=== PATIENT | male | born 1980 | race American Indian/Alaskan Native ===

== ENCOUNTER 2017-06-26 13:32 | Inpatient (IN) | payer OTHER ==
--- NOTE | 2017-06-26 13:45 | Emergency Department Report ---
Stated Complaint: STOMACH PAIN Time Seen by Provider: 06/26/17 13:43 - HPI History of Present Illness: patient is a 36 y/o male with h/o crohns who presents due to right lower abdominal pain x 4 days. Patient denies any nausea or vomiting. Patient admits of fever. - ROS Review of Systems: abdominal pain, fever - Exam Physical Exam: right lower abdominal tenderness. MSE screening note: Focused history and physical exam performed. Due to findings the following was ordered:abdominal pain protocol ED Disposition for MSE Condition: Stable
[2017-06-26 14:11] LABS: Basophils % (Auto) 0.6 % (0.0-1.8); Eosinophils % (Auto) 1.6 % (0.0-4.3); Hematocrit 34.7 % (35.5-45.6); Hemoglobin 11.5 gm/dl (11.8-15.2); Mean Corpuscular HGB Conc 33 % (32-34); Mean Corpuscular Volume 72 fl (84-94); Platelet Count 420 K/mm3 (140-440); Red Blood Count 4.82 M/mm3 (3.65-5.03); Red Cell Distribution Width 15.9 % (13.2-15.2); White Blood Count 14.4 K/mm3 (4.5-11.0)
[2017-06-26 14:13] LABS: Mean Corpuscular Hemoglobin 24 pg (28-32)
[2017-06-26 14:54] LABS: Bacteria,Urine 1+ /HPF (Negative); Bilirubin,Urine NEG (Negative); Blood,Urine MOD (Negative); Ketones,Urine NEG (Negative); Leukocyte Esterase,Urine NEG (Negative); Mucus,Urine 3+ /HPF; Nitrite,Urine NEG (Negative); Protein,Urine <15 mg/dL mg/dL (Negative); Urobilinogen,Urine < 2.0 mg/dL (<2.0)
[2017-06-26 14:57] LABS: Albumin 3.4 g/dL (3.9-5); Albumin/Globulin Ratio 0.9 %; Alkaline Phosphatase 59 units/L (35-129); Anion Gap 16 mmol/L; BUN/Creatinine Ratio 9; Blood Urea Nitrogen 7 mg/dL (9-20); Calcium 9.2 mg/dL (8.4-10.2); Carbon Dioxide 28 mmol/L (22-30); Chloride 102.4 mmol/L (98-107); Glucose 97 mg/dL (75-100); Lipase 23 units/L (13-60); Potassium 5.2 mmol/L (3.6-5.0); Sodium 141 mmol/L (137-145); Total Protein 7.3 g/dL (6.3-8.2)
[2017-06-26 14:59] LABS: Alanine Aminotransferase 10 units/L (7-56)
--- NOTE | 2017-06-26 16:58 | Emergency Department Report ---
<AVNI SAWYER - Last Filed: 06/26/17 19:37> ED Abdominal Pain HPI - General Chief Complaint: Abdominal Pain Stated Complaint: STOMACH PAIN Time Seen by Provider: 06/26/17 16:02 Source: patient, RN notes reviewed Mode of arrival: Ambulatory Limitations: No Limitations - History of Present Illness Initial Comments: This is a 36-year-old male, patient is previously known to this provider. Patient has a past medical history of possible Crohn's disease, with a complicated surgical history who recently presented to an outside hospital with chronic abdominal pain since an initial surgery in 2007, that had gotten worse in the previous 5 days. There was a recent CT scan performed at an outpatient hospital, [facility], with a questionable area of pneumoperitoneum suggestive of perforation. This is surrounding a significant area of colitis and ileitis. Surgery signed off at that time, the CT scan was reviewed with the radiologist and compared to a scan performed in April, and there was noted to be inflammation at the ileocolic anastomosis. This information was noted to be slightly worsened since April. CT scan was reexamined with radiology and Gen. surgery," it is not appear to be any pneumoperitoneum or perforation noted." Surgery signed off. Patient today presents to the ER with complaints of right upper quadrant, right flank and right lower quadrant pain. The pain is sharp, and increases with palpation, and decreases with rest. He was also given hydromorphone, and this improved his pain. He denies testicular pain, irritative/obstructive urinary symptoms. Denies headache, neck pain, chest pain, leg pain. Patient also reported that "steroids make my pain better." MD Complaint: abdominal pain -: Gradual Location: RUQ, RLQ Severity: moderate Quality: cramping, aching Consistency: constant Improves With: medication, rest Worsens With: movement - Related Data Home Medications Medication Instructions Recorded Confirmed Last Taken No Known Home Medications [No 06/26/17 06/26/17 Unknown Reported Home Medications] Allergies Allergy/AdvReac Type Severity Reaction Status Date / Time No Known Allergies Allergy Unverified 04/06/14 18:32 ED Review of Systems ROS: Stated complaint: STOMACH PAIN Other details as noted in HPI Constitutional: denies: fever Eyes: denies: vision change ENT: denies: epistaxis Respiratory: denies: cough Cardiovascular: denies: chest pain Gastrointestinal: abdominal pain Genitourinary: denies: dysuria Musculoskeletal: denies: back pain Skin: denies: lesions Psychiatric: denies: as per HPI ED Past Medical Hx - Past Medical History Additional medical history: crohns - Surgical History Additional Surgical History: abdominal surgery related to chrones,kidney stents right - Social History Smoking Status: Current Every Day Smoker Substance Use Type: None - Medications Home Medications: Home Medications Medication Instructions Recorded Confirmed Last Taken Type No Known Home Medications [No 06/26/17 06/26/17 Unknown History Reported Home Medications] ED Physical Exam - General Limitations: No Limitations General appearance: alert, in no apparent distress - Head Head exam: Present: atraumatic, normocephalic - Eye Eye exam: Present: normal appearance, EOMI - ENT ENT exam: Present: normal exam, mucous membranes moist - Neck Neck exam: Present: normal inspection, full ROM. Absent: tenderness, meningismus - Respiratory Respiratory exam: Present: normal lung sounds bilaterally. Absent: respiratory distress, wheezes, rales, rhonchi, stridor, chest wall tenderness, accessory muscle use, decreased breath sounds, prolonged expiratory - Cardiovascular Cardiovascular Exam: Present: regular rate, normal rhythm, normal heart sounds. Absent: systolic murmur, diastolic murmur, rubs, gallop - GI/Abdominal GI/Abdominal exam: Present: soft, tenderness, normal bowel sounds, other (right upper quadrant, right flank, right lower quadrant tenderness. No rebound, guarding or peritoneal signs.). Absent: distended, guarding, rebound, rigid, pulsatile mass - Rectal Rectal exam: Present: deferred - Extremities Exam Extremities exam: Present: normal inspection, full ROM, normal capillary refill. Absent: pedal edema, joint swelling, calf tenderness - Back Exam Back exam: Present: normal inspection, full ROM. Absent: tenderness, CVA tenderness (R), CVA tenderness (L), muscle spasm, paraspinal tenderness, vertebral tenderness - Neurological Exam Neurological exam: Present: alert, oriented X3, other (Extraocular movements intact. Tongue midline. No facial droop. Facial sensation intact to light touch in the V1, V2, V3 distribution bilaterally. 5 and 5 strength in 4 extremities.. Sensation is intact to light touch in 4 extremities.). Absent: motor sensory deficit - Psychiatric Psychiatric exam: Present: normal affect, normal mood - Skin Skin exam: Present: warm, dry, intact, normal color. Absent: rash ED Course Vital Signs 06/26/17 06/26/17 06/26/17 13:41 14:27 16:46 Temperature 98.4 F Pulse Rate 95 H 81 Respiratory 18 16 15 Rate Blood Pressure 104/77 Blood Pressure [Left] O2 Sat by Pulse 100 Oximetry 06/26/17 06/26/17 06/26/17 17:00 18:00 18:21 Temperature Pulse Rate 84 86 Respiratory 12 16 16 Rate Blood Pressure 133/84 138/88 Blood Pressure [Left] O2 Sat by Pulse 100 100 Oximetry 06/26/17 19:10 Temperature 98.4 F Pulse Rate 82 Respiratory 16 Rate Blood Pressure Blood Pressure 123/79 [Left] O2 Sat by Pulse 99 Oximetry - Reevaluation(s) Reevaluation #1: 06/26/17 19:30 Differential diagnoses: Colitis, diverticulitis, bowel obstruction, perforation Assessment and plan: 36 year-old male, has multiple episodes of recurrent acute on chronic abdominal pain, CT scan interpretation from the [facility] is reviewed from 06/15/2017 demonstrates the following findings: Surgical anastomotic line in the right colon near the hepatic flexure. Significant bowel wall thickening in the right colon and cecum perhaps including the distal ileum, suggestive of colitis/enteritis. Questionable foci of extraluminal air although this is indeterminate." No large fluid collection is noted patient will be given a CT scan with IV and oral contrast. He was given pain medication, nausea medication, IV fluids, and is currently sleeping comfortably. Care will be transferred to the overnight physician, Dr. Gallagher, to follow-up on CT scan of the abdomen and pelvis. Disposition as per CT scan. Given leukocytosis and tenderness, low thresholds with the patient. of note, patient reports multiple negative colonoscopies for chrones / ulcerative colitis, the last of which was 4-5 months ago at [place], as per patient have requested colonscopy reports, thus far, they have not returned 06/26/17 19:37 ED Medical Decision Making - Lab Data Result diagrams: 06/26/17 13:48 06/26/17 13:48 Critical care attestation.: If time is entered above; I have spent that time in minutes in the direct care of this critically ill patient, excluding procedure time. ED Disposition Clinical Impression: Intractable abdominal pain, Inflammation of colonic mucosa Disposition: DC-09 OP ADMIT IP TO THIS HOSP Condition: Stable <JUICE GALLAGHER - Last Filed: 06/26/17 21:36> ED Course - Reevaluation(s) Reevaluation #2: 06/26/17 21:35 additional Dilaudid dose ordered - Consultations Consultation #1: 06/26/17 21:32 Dr Curtis (GI) consulted and recommends: No antibiotics IVf Pain management will consult ED Medical Decision Making - Lab Data Result diagrams: 06/26/17 13:48 06/26/17 13:48 - Medical Decision Making Plan to admit patient to the hospital for further workup and evaluation by GI. He has a complicated history recent workup at [facility]. Medical records many further review to determine proper inpatient treatment ED Disposition Is pt being admited?: Yes Time of Disposition: 21:33 (Dr Shaw/hosp)
[2017-06-26] MEDS ORDERED: ZOFRAN IV ONE (17:06)
[2017-06-26] MEDS ORDERED: NACL 0.9% 1000 ML 1,000 ML IV ONE (17:06)
[2017-06-26] MEDS ORDERED: DILAUDID IV ONE ×2 (17:06→21:14)
[2017-06-26] MEDS ORDERED: NACL ONE (19:54)
--- NOTE | 2017-06-26 20:53 | Cat Scan Report ---
FINAL REPORT EXAM: CT ABDOMEN PELVIS W CON HISTORY: right abd pain TECHNIQUE: Spiral CT scanning of the abdomen and pelvis after the uneventful administration of IV contrast. Multiplanar reformations. 100 mL Omnipaque IV. PRIORS: None. FINDINGS: Abdomen: Visualized lung bases show mild atelectatic change or scarring bilaterally. No radiopaque gallstones. Liver without significant abnormality. Spleen without significant abnormality. Pancreas without significant abnormality. Kidneys without significant abnormality. Adrenal glands without significant abnormality. Pelvis: There may be postsurgical changes and surgical clips or sutures in the ascending colon region. Marked, concentric and irregular bowel wall and fold thickening in the ascending colon, with near complete luminal effacement and diffuse pericolonic fat stranding. No apparent pneumatosis. Terminal ileum is poorly defined and may be partially assimilated into ascending colon phlegmon, with associated bowel wall and fold thickening. Appendix obscured and not confidently identified. Multiple enlarged lymph nodes in the right lower quadrant mesentery may be reactive, but nonspecific. Remainder of visualized bowel grossly unremarkable, without evidence of mechanical bowel obstruction. No significant free peritoneal fluid or discrete abscess. Abdominal aorta non-aneurysmal. IMPRESSION: 1. Findings compatible with nonspecific postinflammatory or phlegmonous change and colitis involving the ascending colon, probable cecum and possible terminal ilium, which may be secondary to infectious, inflammatory or ischemic etiology, including Crohn's disease. Neoplastic process not completely excluded. Clinical correlation and followup to resolution advised.
[2017-06-26] MEDS ORDERED: DILAUDID ONE (22:56)
--- NOTE | 2017-06-26 23:22 | History and Physical Report ---
History of Present Illness Date of examination: 06/26/17 History of present illness: 36-year-old male with a history of Crohn's disease came to the emergency room with complaints of abdominal pain. Patient is in the right lower quadrant which she describes as a sharp pain, constant, intensity 7/10, no radiation and he cannot identify exacerbating or relieving factor. Medical records were reviewed, The patient was admitted at [facility] for similar complaints and was discharged 10 days ago, he was treated with antibiotics, this CAT scan at that time showed thickening and inflammation in the right colon, cecum and distal ileum with questionable extraluminal air. Patient was discharged to home, he stated that his pain felt better but it got worse over the last 5 days Review Of Systems: Constitutional: no weight loss Ears, eyes, nose, mouth and throat: no nasal congestion, no nasal discharge, no sinus pressure, blurry vision, diplopia Neck: No neck pain or rigidity. Cardiovascular: no chest pain, orthopnea, palpitations Respiratory: No shortness of breath, cough Gastrointestinal: no hematochezia Genitourinary : no dysuria, frequency , hematuria Musculoskeletal: no muscle ache Integumentary: no rash, no pruritis Neurological: no parathesias, focal weakness Endocrine: no cold or heat intolerance, no polyuria or polydipsia Hematologic/Lymphatic: no easy bruising, no easy bleeding, no gland swelling Allergic/Immunologic: no urticaria, no angioedema. PAST MEDICAL HISTORY:Crohn's diseas PAST SURGICAL HISTORY: Right hemicolectomy, repair of colovesical fistula FAMILY HISTORY: Hypertension SOCIAL HISTORY: Denies alcohol, tobacco, drugs Medications and Allergies Allergies Allergy/AdvReac Type Severity Reaction Status Date / Time No Known Allergies Allergy Unverified 04/06/14 18:32 Home Medications Medication Instructions Recorded Confirmed Last Taken Type No Known Home Medications [No 06/26/17 06/26/17 Unknown History Reported Home Medications] Exam - Physical Exam Narrative exam: Gen. appearance: Patient lying in bed in no acute distress HEENT: Normocephalic/atraumatic, pupils equal round reactive to light, extra alkaline movement intact, no scleral icterus, no JVD or thyromegaly or nodule, neck is supple, mucous membrane moist, no erythema or exudate Heart: S1-S2, regular rate and rhythm Lungs: Clear to auscultation bilateral breathing comfortable Abdomen: Positive bowel sounds, tender on the right abdomen, nondistended, no organomegaly Extremities: No edema, cyanosis, clubbing Neuro:: Oriented 3 , cranial nerves II-12 intact, speech, motor intact Skin: No rash, nodules, warm dry - Constitutional Vitals: Temp Pulse Resp BP Pulse Ox 98.4 F 82 16 123/79 99 06/26/17 19:10 06/26/17 19:10 06/26/17 19:10 06/26/17 19:10 06/26/17 19:10 Results - Labs CBC & Chem 7: 06/28/17 05:51 06/28/17 05:51 Labs: Abnormal lab results 06/26/17 06/26/17 Range/Units 13:48 13:48 WBC 14.4 H (4.5-11.0) K/mm3 Hgb 11.5 L (11.8-15.2) gm/dl Hct 34.7 L (35.5-45.6) % MCV 72 L (84-94) fl MCH 24 L (28-32) pg RDW 15.9 H (13.2-15.2) % Lymph % (Auto) 11.8 L (13.4-35.0) % [place] # 0.9 H (0.0-0.8) K/mm3 Seg Neutrophils % 80.0 H (40.0-70.0) % Seg Neutrophils # 11.5 H (1.8-7.7) K/mm3 Potassium 5.2 H (3.6-5.0) mmol/L BUN 7 L (9-20) mg/dL Albumin 3.4 L (3.9-5) g/dL - Imaging and Cardiology CT scan - abdomen: report reviewed CT scan - pelvis: report reviewed Assessment and Plan Assessment Intractable abdominal pain Chrons disease Plan Admit to medicine start IV fluids, IV morphine hold antibiotics per GI GI is consulted to see the patient, dvt prophylaxis
[2017-06-27] MEDS ORDERED: MILK OF MAGNESIA PO PRN (03:45)
[2017-06-27] MEDS ORDERED: DULCOLAX PR PRN (03:45)
[2017-06-27] MEDS ORDERED: TYLENOL PO PRN (03:45)
[2017-06-27] MEDS ORDERED: ZOFRAN IV PRN (03:45)
[2017-06-27] MEDS: MORPHINE IV PRN ×5 (04:17→22:16)
[2017-06-27] MEDS: NACL 0.45% 1000 ML 1,000 ML IV SCH ×2 (04:21→14:04)
[2017-06-27] MEDS: LOVENOX SUB-Q SCH (09:25)
--- NOTE | 2017-06-27 11:16 | Gastroenterology Consultation ---
<JUNGKWASITRUE Olivera - Last Filed: 06/27/17 12:15> History of Present Illness - Reason for Consult Consult date: 06/27/17 intractable abd pain, colitis Requesting physician: JUICE EAGLE - History of Present Illness Patient is a 36 y/o male with PMH of kidney stents and possible Crohn's disease with right hemicolectomy in 2007 to repair colovesical fistula who presented to the ER with c/o RLQ abd pain. Patient reports having a kidney stent in 2007 with development of a fistula requiring right hemicolectomy. He states that he has had chronic RLQ abd pain since that time with BMs of liquid watery stool on average of 1 per day. He has undergone multiple colonoscopies with no confirmed diagnosed of Crohn's disease. Last colonoscopy 02/[address] Gill at [facility] showed and anastomotic stricture but otherwise normal. He reports failing treatment with Humira, Remicade, and Entyvio in the pastwhile living in [place] on an indigent program 2/2 side effects of muscle weakness. He states "they all made me look like I was having a stroke and I couldn't move my wrists or legs". He reports being off medications since 2011 with multiple hospital admissions since that time. He states that his pain is only tolerable while he is on steroids but as soon as he comes off of them his RLQ pain returns. Pain is described as chronic, constant, non-radiating, worsened by eating, and alleviated with pain medications or steroids. He states that he has not been able to comply with outpatient f/u as needed due to inability to pay and lack of insurance. No Fhx of IBD. Denies fever, recent wt loss, N/V, constipation, or rectal bleeding. Last BM overnight with liquid yellow/watery non-bloody stool. No recent travel or ill contacts. Past History Past Medical History: other (possible Crohn's disease) Past Surgical History: Other (kidney stents, right hemicolectomy for repair of colovesical fistula) Social history: Lives alone, smoking. denies: alcohol abuse Family history: hypertension Medications and Allergies Allergies Allergy/AdvReac Type Severity Reaction Status Date / Time No Known Allergies Allergy Unverified 04/06/14 18:32 Home Medications Medication Instructions Recorded Confirmed Last Taken Type No Known Home Medications [No 06/26/17 06/26/17 Unknown History Reported Home Medications] Active Meds: Active Medications Acetaminophen (Tylenol) 650 mg PO Q4H PRN PRN Reason: Pain MILD(1-3)/Fever >100.5/FLORIAN Bisacodyl (Dulcolax) 10 mg MD QDAY PRN PRN Reason: Constipation unrelieved by MOM Enoxaparin Sodium (Lovenox) 40 mg SUB-Q QDAY TATE Last Admin: 06/27/17 09:25 Dose: 40 mg Sodium Chloride (Nacl 0.45% 1000 Ml) 1,000 mls @ 100 mls/hr IV DIRECT TATE Last Admin: 06/27/17 04:21 Dose: 100 mls/hr Magnesium Hydroxide (Milk Of Magnesia) 30 ml PO Q4H PRN PRN Reason: Constipation Morphine Sulfate (Morphine) 2 mg IV Q4H PRN PRN Reason: Pain, Moderate (4-6) Last Admin: 06/27/17 09:25 Dose: 2 mg Ondansetron HCl (Zofran) 4 mg IV Q8H PRN PRN Reason: N/V unrelieved by Reglan Review of Systems - Review of Systems All systems: negative Gastrointestinal: abdominal pain (RLQ), diarrhea Exam - Constitutional Vital Signs: Temp Pulse Resp BP Pulse Ox 97.8 F 59 L 18 113/69 99 06/27/17 08:10 06/27/17 08:10 06/27/17 08:10 06/27/17 08:10 06/27/17 09:08 General appearance: no acute distress - EENT Eyes: PERRL, EOM intact ENT: hearing intact - Respiratory Respiratory: bilateral: CTA - Cardiovascular Rhythm: regular Heart Sounds: Present: S1 & S2 Extremities: No edema - Gastrointestinal General gastrointestinal: Present: soft, tender (RLQ), non-distended, normal bowel sounds - Integumentary Integumentary: Present: warm, dry - Neurologic Neurological: alert and oriented x3 - Labs CBC & Chem 7: 06/26/17 13:48 06/26/17 13:48 Assessment and Plan 1.intractable RLQ abd pain 2.colitis 3.possible Crohn's disease 4.diarrhea -afebrile -WBC-14.4 -abd CT showed nonspecific post inflammatory or phlegmonous change and colitis -pt with h/o right hemicolectomy for colovesical repair in 2007 with suspicion for possible Crohn's disease, however there has never been a confirmed diagnosis -last colonoscopy 02/17 showed an anastomotic stricture but otherwise normal -pt reports failing treatment with Humira, Remicade,and Entyvio in the past with only relief in pain since that time with steroids -will start pt on IV steroids, Cipro and flagyl -will order stool studies, CRP, and ASCA/ANCA -continue supportive care -pt may require chronic steroid use with possible surgical revision of anastomotic stricture in the future -He will also need a CT enterography as an outpatient to assess small bowel -further recommendations to follow <CARSON VASQUEZ - Last Filed: 06/27/17 18:49> History of Present Illness - History of Present Illness Pt had kidney stent placed in 2007. He was told he had a fistula in 2011, and required surgery then, at which time he states 4" of small bowel were removed, and a hole in his colon repaired. He is not aware of any colon resection. He states he was on Humira at the time, and it was stopped 2 wks prior to surgery, and restarted 1 wk post-op. He states he was hospitalized for several months, and had a protracted recovery. Currently, feels better after getting steroids. He was just in [facility], but left [facility] on 06/16/17 after what he states was being called stupid for thinking his problems all originiated from stent and possible perforation. He states he has had 3 colonoscopies thus far this year, and care has been compromised by lack of insurance. Medications and Allergies Active Meds: Active Medications Acetaminophen (Tylenol) 650 mg PO Q4H PRN PRN Reason: Pain MILD(1-3)/Fever >100.5/FLORIAN Bisacodyl (Dulcolax) 10 mg MD QDAY PRN PRN Reason: Constipation unrelieved by MOM Enoxaparin Sodium (Lovenox) 40 mg SUB-Q QDAY TATE Last Admin: 06/27/17 09:25 Dose: 40 mg Sodium Chloride (Nacl 0.45% 1000 Ml) 1,000 mls @ 100 mls/hr IV DIRECT TATE Last Admin: 06/27/17 14:04 Dose: 100 mls/hr Levofloxacin/Dextrose (Levaquin 500mg/100ml) 500 mg in 100 mls @ 100 mls/hr IV Q24HR TATE PRN Reason: Protocol Metronidazole (Flagyl 500 Mg/100 Ml) 500 mg in 100 mls @ 100 mls/hr IV Q8HR TATE Last Admin: 06/27/17 14:04 Dose: 100 mls/hr Magnesium Hydroxide (Milk Of Magnesia) 30 ml PO Q4H PRN PRN Reason: Constipation Methylprednisolone Sodium Succinate (Solu-Medrol) 40 mg IV Q24HR TATE Last Admin: 06/27/17 14:04 Dose: 40 mg Morphine Sulfate (Morphine) 2 mg IV Q4H PRN PRN Reason: Pain, Moderate (4-6) Last Admin: 06/27/17 18:17 Dose: 2 mg Ondansetron HCl (Zofran) 4 mg IV Q8H PRN PRN Reason: N/V unrelieved by Reglan Exam - Constitutional Vital Signs: Temp Pulse Resp BP Pulse Ox 98.4 F 63 20 123/82 98 06/27/17 15:36 06/27/17 15:36 06/27/17 15:36 06/27/17 15:36 06/27/17 15:36 - Labs CBC & Chem 7: 06/26/17 13:48 06/26/17 13:48 Assessment and Plan Inflammation in ascending colon on CT is different from normal colon with TI stricture in 02/2017. Check for infection, and tx for Crohn's flare. If does well, can go home on oral abx and steroids. Outpatient CTE, and then pt getting us old op note to assess. He may well need chronic low dose steroids, and then eval for trial of Stellara vs resection vs continue steroids, possibly budesonide.
[2017-06-27] MEDS: FLAGYL 500 MG/100 ML 500 MG/100 ML BAG IV SCH ×2 (14:04→22:16)
--- NOTE | 2017-06-27 21:38 | Progress Note ---
Assessment and Plan Assessment and plan: 36 yo AAM with h/o ureteral stents and postop development of colovesical fistula , that required right hemicolectomy, with chronic RLQ pain and presumed Crohn's disease, s/p failed treatment with immunosuppressives due to side effects, presented for worsening abdominal pain; of note, he feels better only while he is on corticosteroids 1. Abdominal pain/Crohn's disease flare S/p right hemicolectomy and chronic RLQ pain Failed treatment wit Humira, Remicade, Entyvio CT abd/pelvis showing inflammation/colitis ascending colon, stricture Stool WBC and culture obtained GI following and initiated corticosteroid therapy along with oral antibiotics, ciprofloxacin and Flagyl 2. Colonic stricture 3. S/p hemicolectomy due to colovesical fistula 4. DVT prophylaxis History Interval history: less abd pain, feeling better Hospitalist Physical - Constitutional Vitals: Temp Pulse Resp BP Pulse Ox 98.4 F 63 20 123/82 98 06/27/17 15:36 06/27/17 15:36 06/27/17 15:36 06/27/17 15:36 06/27/17 15:36 General appearance: Present: no acute distress, well-nourished - EENT Eyes: Present: PERRL, EOM intact. Absent: scleral icterus, conjunctival injection - Neck Neck: Present: supple, normal ROM. Absent: masses or JVD - Respiratory Respiratory effort: normal Respiratory: bilateral: CTA, negative: rhonchi, wheezing - Cardiovascular Rhythm: regular Heart Sounds: Present: S1 & S2. Absent: systolic murmur - Extremities Extremities: no ischemia - Abdominal General gastrointestinal: soft, tender, non-distended, normal bowel sounds Localized gastrointestinal: tender: RLQ (no guarding or rebound ) - Psychiatric Psychiatric: cooperative - Neurologic Neurologic: CNII-XII intact, no focal deficits Results - Labs CBC & Chem 7: 06/28/17 05:51 06/28/17 05:51 Labs: Laboratory Last Values WBC 14.4 K/mm3 (4.5-11.0) H 06/26/17 13:48 RBC 4.82 M/mm3 (3.65-5.03) 06/26/17 13:48 Hgb 11.5 gm/dl (11.8-15.2) L 06/26/17 13:48 Hct 34.7 % (35.5-45.6) L 06/26/17 13:48 MCV 72 fl (84-94) L 06/26/17 13:48 MCH 24 pg (28-32) L 06/26/17 13:48 MCHC 33 % (32-34) 06/26/17 13:48 RDW 15.9 % (13.2-15.2) H 06/26/17 13:48 Plt Count 420 K/mm3 (140-440) 06/26/17 13:48 Lymph % (Auto) 11.8 % (13.4-35.0) L 06/26/17 13:48 [place] % (Auto) 6.0 % (0.0-7.3) 06/26/17 13:48 Eos % (Auto) 1.6 % (0.0-4.3) 06/26/17 13:48 Baso % (Auto) 0.6 % (0.0-1.8) 06/26/17 13:48 Lymph # 1.7 K/mm3 (1.2-5.4) 06/26/17 13:48 [place] # 0.9 K/mm3 (0.0-0.8) H 06/26/17 13:48 Eos # 0.2 K/mm3 (0.0-0.4) 06/26/17 13:48 Baso # 0.1 K/mm3 (0.0-0.1) 06/26/17 13:48 Seg Neutrophils % 80.0 % (40.0-70.0) H 06/26/17 13:48 Seg Neutrophils # 11.5 K/mm3 (1.8-7.7) H 06/26/17 13:48 Sodium 141 mmol/L (137-145) 06/26/17 13:48 Potassium 5.2 mmol/L (3.6-5.0) H 06/26/17 13:48 Chloride 102.4 mmol/L (98-107) 06/26/17 13:48 Carbon Dioxide 28 mmol/L (22-30) 06/26/17 13:48 Anion Gap 16 mmol/L 06/26/17 13:48 BUN 7 mg/dL (9-20) L 06/26/17 13:48 Creatinine 0.8 mg/dL (0.8-1.5) 06/26/17 13:48 Estimated GFR > 60 ml/min 06/26/17 13:48 BUN/Creatinine Ratio 9 % 06/26/17 13:48 Glucose 97 mg/dL (75-100) 06/26/17 13:48 Lactic Acid 1.10 mmol/L (0.7-2.0) 06/26/17 17:45 Calcium 9.2 mg/dL (8.4-10.2) 06/26/17 13:48 Total Bilirubin 0.30 mg/dL (0.1-1.2) 06/26/17 13:48 AST 13 units/L (5-40) 06/26/17 13:48 ALT 10 units/L (7-56) 06/26/17 13:48 Alkaline Phosphatase 59 units/L (35-129) 06/26/17 13:48 Total Protein 7.3 g/dL (6.3-8.2) 06/26/17 13:48 Albumin 3.4 g/dL (3.9-5) L 06/26/17 13:48 Albumin/Globulin Ratio 0.9 % 06/26/17 13:48 Lipase 23 units/L (13-60) 06/26/17 13:48 Urine Color Yellow (Yellow) 06/26/17 14:04 Urine Turbidity Clear (Clear) 06/26/17 14:04 Urine pH 6.0 (5.0-7.0) 06/26/17 14:04 Ur Specific [place] 1.021 (1.003-1.030) 06/26/17 14:04 Urine Protein <15 mg/dl mg/dL (Negative) 06/26/17 14:04 Urine Glucose (UA) Neg mg/dL (Negative) 06/26/17 14:04 Urine Ketones Neg mg/dL (Negative) 06/26/17 14:04 Urine Blood Mod (Negative) 06/26/17 14:04 Urine Nitrite Neg (Negative) 06/26/17 14:04 Urine Bilirubin Neg (Negative) 06/26/17 14:04 Urine Urobilinogen < 2.0 mg/dL (<2.0) 06/26/17 14:04 Ur Leukocyte Esterase Neg (Negative) 06/26/17 14:04 Urine WBC (Auto) 1.0 /HPF (0.0-6.0) 06/26/17 14:04 Urine RBC (Auto) 4.0 /HPF (0.0-6.0) 06/26/17 14:04 U Epithel Cells (Auto) 1.0 /HPF (0-13.0) 06/26/17 14:04 Urine Bacteria (Auto) 1+ /HPF (Negative) 06/26/17 14:04 Urine Mucus 3+ /HPF 06/26/17 14:04 - Imaging and Cardiology US - abdomen: report reviewed
[2017-06-28] MEDS: MORPHINE IV PRN ×4 (02:59→19:43)
[2017-06-28] MEDS: NACL 0.45% 1000 ML 1,000 ML IV SCH ×2 (03:32→16:52)
[2017-06-28] MEDS: FLAGYL 500 MG/100 ML 500 MG/100 ML BAG IV SCH ×3 (05:50→22:22)
[2017-06-28 06:31] LABS: Basophils % (Auto) 0.6 % (0.0-1.8); Eosinophils % (Auto) 0.1 % (0.0-4.3); Hematocrit 33.1 % (35.5-45.6); Hemoglobin 10.9 gm/dl (11.8-15.2); Mean Corpuscular HGB Conc 33 % (32-34); Mean Corpuscular Hemoglobin 24 pg (28-32); Mean Corpuscular Volume 72 fl (84-94); Platelet Count 381 K/mm3 (140-440); Red Blood Count 4.62 M/mm3 (3.65-5.03); Red Cell Distribution Width 15.8 % (13.2-15.2); White Blood Count 14.3 K/mm3 (4.5-11.0)
[2017-06-28 06:53] LABS: Anion Gap 13 mmol/L; BUN/Creatinine Ratio 10; Blood Urea Nitrogen 7 mg/dL (9-20); Calcium 8.7 mg/dL (8.4-10.2); Carbon Dioxide 27 mmol/L (22-30); Chloride 102.4 mmol/L (98-107); Glucose 101 mg/dL (75-100); Potassium 4.3 mmol/L (3.6-5.0); Sodium 138 mmol/L (137-145)
[2017-06-28] MEDS ORDERED: LEVAQUIN 500MG/100ML 500 MG/100 ML BAG IV SCH (10:00)
[2017-06-28] MEDS: LOVENOX SUB-Q SCH (10:15)
--- NOTE | 2017-06-28 11:21 | Gastroenterology Progress Note ---
<JUNGKWASI Jarod - Last Filed: 06/28/17 11:27> Assessment and Plan 1.intractable RLQ abd pain 2.colitis 3.possible Crohn's disease 4.diarrhea -afebrile -WBC-14.3 -CRP-3.70 -ASCA/ANCA results pending -stool studies pending -abd CT showed nonspecific post inflammatory or phlegmonous change and colitis -pt with h/o right hemicolectomy for colovesical repair in 2007 with suspicion for possible Crohn's disease, however there has never been a confirmed diagnosis -last colonoscopy 02/17 showed an anastomotic stricture but otherwise normal -clinically pt states he is feeling better today with abd pain improving and he is tolerating clear liquid diet -will advance diet -continue current medications and supportive care -will follow Subjective Date of service: 06/28/17 Principal diagnosis: intractable abd pain, colitis Interval history: Patient resting in bed. No acute distress or events overnight. Reports his abd pain is improving and he is feeling better. Tolerating clear liquids. Objective - Constitutional Vitals: Temp Pulse Resp BP Pulse Ox 97.3 F L 57 L 20 128/75 100 06/28/17 08:36 06/28/17 08:36 06/28/17 08:36 06/28/17 08:36 06/28/17 08:36 General appearance: no acute distress - EENT Eyes: PERRL, EOM intact ENT: hearing intact - Respiratory Respiratory: bilateral: CTA - Cardiovascular Rhythm: other (bradycardia) Heart Sounds: Present: S1 & S2 - Extremities Extremities: No edema - Gastrointestinal General gastrointestinal: Present: soft, tender (RLQ), non-distended, normal bowel sounds - Integumentary Integumentary: Present: warm, dry - Neurologic Neurological: alert and oriented x3 - Labs CBC & Chem 7: 06/28/17 05:51 06/28/17 05:51 Labs: Laboratory Results - last 24 hr 06/28/17 06/28/17 05:51 05:51 WBC 14.3 H RBC 4.62 Hgb 10.9 L Hct 33.1 L MCV 72 L MCH 24 L MCHC 33 RDW 15.8 H Plt Count 381 Lymph % (Auto) 11.6 L [place] % (Auto) 4.9 Eos % (Auto) 0.1 Baso % (Auto) 0.6 Lymph # 1.7 [place] # 0.7 Eos # 0.0 Baso # 0.1 Seg Neutrophils % 82.8 H Seg Neutrophils # 11.9 H Sodium 138 Potassium 4.3 Chloride 102.4 Carbon Dioxide 27 Anion Gap 13 BUN 7 L Creatinine 0.7 L Estimated GFR > 60 BUN/Creatinine Ratio 10 Glucose 101 H Calcium 8.7 C-Reactive Protein 3.70 H <CARSON VASQUEZ R - Last Filed: 06/28/17 16:18> Assessment and Plan Much improved. Adv diet, and if does well, consider D/C tomorrow on po meds. Objective - Constitutional Vitals: Temp Pulse Resp BP Pulse Ox 98.2 F 68 18 132/86 99 06/28/17 15:54 06/28/17 15:54 06/28/17 15:54 06/28/17 15:54 06/28/17 15:54 - Labs CBC & Chem 7: 06/28/17 05:51 06/28/17 05:51 Labs: Laboratory Results - last 24 hr 06/28/17 06/28/17 05:51 05:51 WBC 14.3 H RBC 4.62 Hgb 10.9 L Hct 33.1 L MCV 72 L MCH 24 L MCHC 33 RDW 15.8 H Plt Count 381 Lymph % (Auto) 11.6 L [place] % (Auto) 4.9 Eos % (Auto) 0.1 Baso % (Auto) 0.6 Lymph # 1.7 [place] # 0.7 Eos # 0.0 Baso # 0.1 Seg Neutrophils % 82.8 H Seg Neutrophils # 11.9 H Sodium 138 Potassium 4.3 Chloride 102.4 Carbon Dioxide 27 Anion Gap 13 BUN 7 L Creatinine 0.7 L Estimated GFR > 60 BUN/Creatinine Ratio 10 Glucose 101 H Calcium 8.7 C-Reactive Protein 3.70 H
--- NOTE | 2017-06-28 17:41 | Progress Note ---
Assessment and Plan Assessment and plan: 36 yo AAM with h/o ureteral stents and postop development of colovesical fistula , that required right hemicolectomy, with chronic RLQ pain and presumed Crohn's disease, s/p failed treatment with immunosuppressives due to side effects, presented for worsening abdominal pain; of note, he feels better only while he is on corticosteroids 1. Abdominal pain/Crohn's disease flare S/p right hemicolectomy and chronic RLQ pain Failed treatment wit Humira, Remicade, Entyvio CT abd/pelvis showing inflammation/colitis ascending colon, stricture Stool WBC and culture obtained GI following and initiated corticosteroid therapy along with oral antibiotics, ciprofloxacin and Flagyl Improving Plan for 7-10 day antibiotic course and slow corticosteroid taper, then outpatient follow-up with GI 2. Colonic stricture 3. S/p hemicolectomy due to colovesical fistula 4. DVT prophylaxis History Interval history: doing well, feeling better, pain improved, tolerating liquids Hospitalist Physical - Constitutional Vitals: Temp Pulse Resp BP Pulse Ox 98.2 F 68 18 132/86 99 06/28/17 15:54 06/28/17 15:54 06/28/17 15:54 06/28/17 15:54 06/28/17 15:54 General appearance: Present: no acute distress - EENT Eyes: Present: PERRL, EOM intact - Neck Neck: Present: supple, normal ROM. Absent: masses or JVD - Respiratory Respiratory effort: normal Respiratory: bilateral: CTA, negative: rhonchi, wheezing - Cardiovascular Rhythm: regular Heart Sounds: Present: S1 & S2. Absent: systolic murmur - Extremities Extremities: no ischemia - Abdominal General gastrointestinal: soft, non-tender, tender, normal bowel sounds Localized gastrointestinal: tender: RLQ - Psychiatric Psychiatric: cooperative - Neurologic Neurologic: CNII-XII intact, no focal deficits Results - Labs CBC & Chem 7: 06/28/17 05:51 06/28/17 05:51 Labs: Laboratory Last Values WBC 14.3 K/mm3 (4.5-11.0) H 06/28/17 05:51 RBC 4.62 M/mm3 (3.65-5.03) 06/28/17 05:51 Hgb 10.9 gm/dl (11.8-15.2) L 06/28/17 05:51 Hct 33.1 % (35.5-45.6) L 06/28/17 05:51 MCV 72 fl (84-94) L 06/28/17 05:51 MCH 24 pg (28-32) L 06/28/17 05:51 MCHC 33 % (32-34) 06/28/17 05:51 RDW 15.8 % (13.2-15.2) H 06/28/17 05:51 Plt Count 381 K/mm3 (140-440) 06/28/17 05:51 Lymph % (Auto) 11.6 % (13.4-35.0) L 06/28/17 05:51 [place] % (Auto) 4.9 % (0.0-7.3) 06/28/17 05:51 Eos % (Auto) 0.1 % (0.0-4.3) 06/28/17 05:51 Baso % (Auto) 0.6 % (0.0-1.8) 06/28/17 05:51 Lymph # 1.7 K/mm3 (1.2-5.4) 06/28/17 05:51 [place] # 0.7 K/mm3 (0.0-0.8) 06/28/17 05:51 Eos # 0.0 K/mm3 (0.0-0.4) 06/28/17 05:51 Baso # 0.1 K/mm3 (0.0-0.1) 06/28/17 05:51 Seg Neutrophils % 82.8 % (40.0-70.0) H 06/28/17 05:51 Seg Neutrophils # 11.9 K/mm3 (1.8-7.7) H 06/28/17 05:51 Sodium 138 mmol/L (137-145) 06/28/17 05:51 Potassium 4.3 mmol/L (3.6-5.0) 06/28/17 05:51 Chloride 102.4 mmol/L (98-107) 06/28/17 05:51 Carbon Dioxide 27 mmol/L (22-30) 06/28/17 05:51 Anion Gap 13 mmol/L 06/28/17 05:51 BUN 7 mg/dL (9-20) L 06/28/17 05:51 Creatinine 0.7 mg/dL (0.8-1.5) L 06/28/17 05:51 Estimated GFR > 60 ml/min 06/28/17 05:51 BUN/Creatinine Ratio 10 % 06/28/17 05:51 Glucose 101 mg/dL (75-100) H 06/28/17 05:51 Lactic Acid 1.10 mmol/L (0.7-2.0) 06/26/17 17:45 Calcium 8.7 mg/dL (8.4-10.2) 06/28/17 05:51 Total Bilirubin 0.30 mg/dL (0.1-1.2) 06/26/17 13:48 AST 13 units/L (5-40) 06/26/17 13:48 ALT 10 units/L (7-56) 06/26/17 13:48 Alkaline Phosphatase 59 units/L (35-129) 06/26/17 13:48 C-Reactive Protein 3.70 mg/dL (0.00-1.30) H 06/28/17 05:51 Total Protein 7.3 g/dL (6.3-8.2) 06/26/17 13:48 Albumin 3.4 g/dL (3.9-5) L 06/26/17 13:48 Albumin/Globulin Ratio 0.9 % 06/26/17 13:48 Lipase 23 units/L (13-60) 06/26/17 13:48 Urine Color Yellow (Yellow) 06/26/17 14:04 Urine Turbidity Clear (Clear) 06/26/17 14:04 Urine pH 6.0 (5.0-7.0) 06/26/17 14:04 Ur Specific [place] 1.021 (1.003-1.030) 06/26/17 14:04 Urine Protein <15 mg/dl mg/dL (Negative) 06/26/17 14:04 Urine Glucose (UA) Neg mg/dL (Negative) 06/26/17 14:04 Urine Ketones Neg mg/dL (Negative) 06/26/17 14:04 Urine Blood Mod (Negative) 06/26/17 14:04 Urine Nitrite Neg (Negative) 06/26/17 14:04 Urine Bilirubin Neg (Negative) 06/26/17 14:04 Urine Urobilinogen < 2.0 mg/dL (<2.0) 06/26/17 14:04 Ur Leukocyte Esterase Neg (Negative) 06/26/17 14:04 Urine WBC (Auto) 1.0 /HPF (0.0-6.0) 06/26/17 14:04 Urine RBC (Auto) 4.0 /HPF (0.0-6.0) 06/26/17 14:04 U Epithel Cells (Auto) 1.0 /HPF (0-13.0) 06/26/17 14:04 Urine Bacteria (Auto) 1+ /HPF (Negative) 06/26/17 14:04 Urine Mucus 3+ /HPF 06/26/17 14:04
[2017-06-29] MEDS: NACL 0.45% 1000 ML 1,000 ML IV SCH (03:34)
[2017-06-29] MEDS: MORPHINE IV PRN ×3 (03:35→13:49)
[2017-06-29] MEDS: FLAGYL 500 MG/100 ML 500 MG/100 ML BAG IV SCH (05:30)
[2017-06-29 08:43] VITALS: BP 127/79
--- NOTE | 2017-06-29 08:45 | Discharge Summary ---
Providers - Providers Date of Admission: 06/26/17 23:21 Date of discharge: 06/29/17 Attending physician: KELLY CARDENAS Consults: GI Primary care physician: PMO ANALYST Hospitalization Reason for admission: abdominal pain Condition: Stable Pertinent studies: CT abdomen/pelvis Hospital course: Patient is a 36 yo AAM with h/o ureteral stents and postop development of colovesical fistula, that required right hemicolectomy, with chronic RLQ pain and presumed Crohn's disease, s/p failed treatment with immunosuppressives due to side effects, who presented for worsening abdominal pain. He had multiple colonoscopies and CT abdomen, most recent one 6 months ago. Stating that he feels better only while on corticosteroids. CT abdomen during this admission showed inflammation ascending colon which is different from previous normal CT which is consistent with Crohn's disease flare. Evaluated by GI and started on corticosteroids along with antibiotics. He improved and tolerated diet. It is discharged in stable condition with 7-10 days antibiotic course, slow corticosteroid taper over a month and GI follow-up. Discharge diagnoses: Crohn's disease flare Acute on chronic abdominal pain Colonic stricture Weight loss Status post right hemicolectomy History of colovesical fistula Disposition: DC- TO HOME OR SELFCARE Time spent for discharge: 35 minutes Core Measure Documentation - Palliative Care Palliative Care/ Comfort Measures: Not Applicable - Core Measures Any of the following diagnoses?: none Exam - Physical Exam Narrative exam: Seen and examined: - Constitutional Vitals: Temp Pulse Resp BP Pulse Ox 98.2 F 68 18 132/86 99 06/28/17 15:54 06/28/17 15:54 06/28/17 15:54 06/28/17 15:54 06/28/17 15:54 General appearance: Present: no acute distress - EENT Eyes: Present: PERRL, EOM intact - Neck Neck: Present: supple, normal ROM. Absent: enlarged thyroid, masses or JVD - Respiratory Respiratory effort: normal Respiratory: bilateral: CTA, negative: rhonchi, wheezing - Cardiovascular Rhythm: regular Heart Sounds: Present: S1 & S2. Absent: systolic murmur - Extremities Extremities: no ischemia - Abdominal General gastrointestinal: Present: soft, tender, non-distended, normal bowel sounds Localized gastrointestinal: tender: RLQ - Psychiatric Psychiatric: cooperative - Neurologic Neurologic: CNII-XII intact, no focal deficits Plan Activity: advance as tolerated Diet: regular, advance as tolerated Follow up with: PRIMARY CARE, [Primary Care Provider] - 7 Days CARSON VASQUEZ MD [Staff Physician] - 14 Days Prescriptions: Levofloxacin [Levaquin TAB] 500 mg PO Q24HR #7 tablet metroNIDAZOLE [Flagyl TAB] 500 mg PO Q8HR #21 tablet predniSONE [Deltasone] 20 mg PO QDAY #60 tab
[2017-06-29] MEDS: LOVENOX SUB-Q SCH (09:12)
[2017-06-29] MEDS ORDERED: LEVAQUIN PO SCH ×2 (10:00)
--- NOTE | 2017-06-29 10:15 | Gastroenterology Progress Note ---
Assessment and Plan 1.intractable RLQ abd pain 2.colitis 3.possible Crohn's disease 4.diarrhea -ASCA/ANCA results pending-f/u in office -stool studies pending -abd CT showed nonspecific post inflammatory or phlegmonous change and colitis -pt with h/o right hemicolectomy for colovesical repair in 2007 with suspicion for possible Crohn's disease, however there has never been a confirmed diagnosis -last colonoscopy 02/17 showed an anastomotic stricture but otherwise normal -clinically pt continues to improve stating abd pain is much better and tolerating soft diet -will advance diet to regular -will change steroids from IV to PO -continue supportive care -pt is okay to be d/c from a GI standpoint with a f/u clinic appt in 2weeks on a steroid taper from 40mg daily down to 10mg daily -discussed need for f/u appt with pt and office information given -will sign off Subjective Date of service: 06/29/17 Principal diagnosis: intractable abd pain, colitis Interval history: Patient resting in bed. No acute distress or events overnight. Tolerating soft diet. Reports Abd pain continues to improve. Objective - Constitutional Vitals: Temp Pulse Resp BP Pulse Ox 98.1 F 54 L 18 127/79 97 06/29/17 08:41 06/29/17 08:41 06/29/17 08:41 06/29/17 08:41 06/29/17 08:41 General appearance: no acute distress, well-nourished - EENT Eyes: PERRL, EOM intact ENT: hearing intact - Neck Neck: supple, normal ROM - Respiratory Respiratory: bilateral: CTA - Cardiovascular Rhythm: regular Heart Sounds: Present: S1 & S2 - Extremities Extremities: No edema - Gastrointestinal General gastrointestinal: Present: soft, tender (mildly tender RLQ), non- distended, normal bowel sounds - Integumentary Integumentary: Present: warm, dry - Neurologic Neurological: alert and oriented x3 - Labs CBC & Chem 7: 06/28/17 05:51 06/28/17 05:51
[2017-06-29] MEDS ORDERED: FLAGYL PO SCH (14:00)
[2017-06-30] MEDS ORDERED: DELTASONE PO SCH (10:00)
[2017-06-30 13:18] LABS: Myeloperoxidase Antibody <1.0 AI (<1.0)
== END 2017-06-29 17:45 | disposition home or self-care (01) | DRG 386 ==
LOC: ED 13:32 → 3A 23:21
PROVIDERS: ADMIT Internal Medicine; ATTEND Internal Medicine
DX: K50.90 Crohn's disease, unspecified, without complications (principal); K56.699 Other intestinal obstruction unspecified as to partial versus complete obstruction; F17.210 Nicotine dependence, cigarettes, uncomplicated
CPT/HCPCS: 36415; 74177; 80048; 80053; 81001; 82140; 82785; 83690; 85007; 85025; 86021; 86140; 87045; 87493; 96361; 96374; 96375; 99285; J1170; J1650; J1956; J2270; J2405; J2920; J2930; J7030; Q9967

== ENCOUNTER 2017-08-08 13:21 | Emergency (ER) | payer OTHER ==
[2017-08-08 13:31] VITALS: BP 128/81
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
[2017-08-08] MEDS ORDERED: FLEXERIL PO ONE (17:55)
[2017-08-08] MEDS ORDERED: TYLENOL #3 PO ONE (17:55)
== END 2017-08-08 19:04 | disposition home or self-care (01) ==
LOC: ED 13:21
DX: S16.1XXA Strain of muscle, fascia and tendon at neck level, initial encounter (principal); M79.621 Pain in right upper arm; F17.200 Nicotine dependence, unspecified, uncomplicated; V47.6XXA Car passenger injured in collision with fixed or stationary object in traffic accident, initial encounter; Y93.89 Activity, other specified; Y92.89 Other specified places as the place of occurrence of the external cause; Y99.8 Other external cause status
CPT/HCPCS: 99282

== ENCOUNTER 2020-05-21 09:11 | Emergency (ER) | payer SELFPAY ==
[2020-05-21 09:15] VITALS: BP 118/89
--- NOTE | 2020-05-21 12:52 | Emergency Department Report ---
Chief Complaint: Pain General Stated Complaint: JOINT PAIN Time Seen by Provider: 05/21/20 12:39 - HPI History of Present Illness: Patient is a 39-year-old male presents emergency room complaints of diffuse joint pain that began 2 months ago. He states that it comes and goes. He states that it is always in different locations. He states that it is currently in his left elbow and left knee. He denies any fever, nausea, vomiting, diarrhea, unexplained weight loss, redness of the joints. past medical history: partial colon resection. No allergies to medications. He does not have a primary care physician Vitals are normal On exam: Non toxic appearing, no acute distress atraumatic, normocephalic normal appearance of the eyes, PERRL, EOMI, no periorbital edema or ecchymosis moist mucus membranes regular heart rate and rhythm, no gallops, no rubs, no murmurs breath sounds are clear bilaterally, no w/r/r Full range of motion of the bilateral upper extremities and lower extremities, no obvious joint swelling, no erythema, no edema, no increased warmth, neurovascularly intact throughout, no skin changes A&O x4, no focal neuro deficit skin is warm, dry, intact Patient presents for joint pain that has been ongoing for 2 months No clinical signs of gout or septic joint He has no constitutional symptoms Patient be referred to primary care physician for arthritis work-up discussed supportive care and symptomatic treatment with patient Discussed very strict return precautions Medical screening examination performed and there is no threat to life or limb at this time - Exam Vital Signs: Vital Signs 05/21/20 09:12 Temperature 97.9 F Pulse Rate 87 Respiratory 18 Rate Blood Pressure 118/89 [Right] O2 Sat by Pulse 100 Oximetry MSE screening note: Focused history and physical exam performed. Due to findings the following was ordered: ED Disposition for MSE Clinical Impression: Joint pain Qualifiers: Joint pain location: unspecified Qualified Code(s): M25.50 - Pain in unspecified joint Disposition: Z-07 MED SCREENING EXAM-LEFT Is pt being admited?: No Does the pt Need Aspirin: No Condition: Stable Instructions: Arthralgia (ED) Additional Instructions: May alternate Tylenol or ibuprofen as needed for discomfort. May use an arthritis ointment [id number] or [place] balm ointment. Follow-up with a primary care doctor for further evaluation. Return to emergency room for any new or worsening symptoms. Referrals: CAMILA PAINTING MD [Staff Physician] - 2-3 Days [facility] [Provider Group] - 2-3 Days [facility], [LAB/CONTRACT] - 2-3 Days Time of Disposition: 12:51 Print Language: BELGIAN
== END 2020-05-21 13:14 | disposition left against medical advice (07) ==
LOC: ED 09:11
DX: M25.50 Pain in unspecified joint (principal); Z53.21 Procedure and treatment not carried out due to patient leaving prior to being seen by health care provider